=== PATIENT | female | born 1990 | race Caucasian/White ===

== ENCOUNTER 2022-06-12 06:30 | Inpatient (IN) ==
[2022-06-12] MEDS ORDERED: NS 100 ML IV 100 ML ONE (07:33)
[2022-06-12] MEDS ORDERED: ANCEF VIAL 1 GRAM ONE (07:33)
[2022-06-12] MEDS ORDERED: LR 1,000 ML IV 1,000 ML IV ONE ×2 (07:34→08:34)
[2022-06-12] MEDS ORDERED: D5 1/2 NS 1,000 ML 1,000 ML IV SCH (07:55)
[2022-06-12] MEDS ORDERED: ANCEF VIAL 1 GRAM IVP ONE (07:55)
[2022-06-12] MEDS ORDERED: TORADOL 30 MG VIAL ONE (08:36)
[2022-06-12] MEDS ORDERED: MARCAINE SPINAL ONE (08:36)
[2022-06-12] MEDS ORDERED: OFIRMEV IV 1000 MG VIAL 1,000 MG/100 ML VIAL IV ONE (08:37)
[2022-06-12] MEDS ORDERED: ZOFRAN INJ 4 MG VIAL ONE (08:37)
[2022-06-12] MEDS ORDERED: REGLAN INJ 10 MG VIAL ONE (08:37)
[2022-06-12] MEDS ORDERED: XYLOCAINE 2 % (PLAIN) ONE (08:37)
[2022-06-12] MEDS ORDERED: PEPCID 20 MG VIAL ONE (08:38)
[2022-06-12] MEDS ORDERED: PITOCIN ONE (08:46)
[2022-06-12] MEDS ORDERED: D5 1/2 NS 1,000 mL + PITOCIN 20 UNITS/L IV 20 UNITS/1,000 ML BAG IV ONE (09:38)
[2022-06-12] MEDS ORDERED: DILAUDID INJ ONE (09:41)
[2022-06-12] MEDS ORDERED: NEO-SYNEPHRINE INJ ONE (10:00)
[2022-06-12] MEDS ORDERED: EPHEDRINE SULFATE INJ ONE (10:03)
[2022-06-12] MEDS ORDERED: DECADRON INJ ONE (10:03)
[2022-06-12] MEDS ORDERED: VERSED ONE (10:30)
[2022-06-12] MEDS ORDERED: DIPRIVAN VIAL 20 ML ONE ×2 (10:33→11:01)
[2022-06-12] MEDS ORDERED: BENADRYL INJ 50 MG VIAL ONE (10:43)
[2022-06-12] MEDS ORDERED: KETAMINE 50 MG/5 ML-NACL SYRNG ONE (10:45)
[2022-06-12] MEDS ORDERED: ZOFRAN INJ 4 MG VIAL IVP PRN ×2 (11:24→11:53)
[2022-06-12] MEDS ORDERED: DILAUDID INJ IVP PRN (11:24)
[2022-06-12] MEDS ORDERED: BARHEMSYS INJ IVP PRN (11:24)
[2022-06-12] MEDS ORDERED: REGLAN INJ 10 MG VIAL IVP PRN (11:53)
[2022-06-12] MEDS ORDERED: ADACEL or BOOSTRIX TDaP VACCINE IM ONE (11:53)
[2022-06-12] MEDS ORDERED: PERCOCET TAB 5/325 MG PO PRN (11:53)
[2022-06-12] MEDS ORDERED: TORADOL 30 MG VIAL IVP PRN (11:53)
[2022-06-12] MEDS ORDERED: NARCAN INJ IVP PRN (11:53)
[2022-06-12] MEDS ORDERED: BENADRYL INJ 50 MG VIAL IVP PRN (11:53)
[2022-06-12] MEDS ORDERED: D5 1/2 NS 1,000 ML 1,000 ML with PITOCIN 20 UNITS IV SCH ×2 (12:00)
[2022-06-13] MEDS: MYLICON TAB 80 MG CHEW PO PRN ×2 (00:31→08:19)
[2022-06-13 05:11] LABS: HEMATOCRIT 21.8 % (36.0-47.0); HEMOGLOBIN 7.3 g/dL (12.0-16.0)
[2022-06-13] MEDS: PERCOCET TAB 5/325 MG PO PRN ×4 (07:51→20:45)
[2022-06-13] MEDS: COLACE CAP 100 MG PO SCH ×2 (08:18→20:45)
[2022-06-13] MEDS: PRENATAL PLUS PO SCH (09:00)
[2022-06-13] MEDS: MOTRIN TAB 800 MG PO PRN ×2 (12:31→19:21)
[2022-06-13] MEDS: BACTROBAN TOPICAL OINT TOP SCH ×2 (14:00→21:59)
[2022-06-13] MEDS: FERROUS GLUCONATE PO SCH (17:06)
[2022-06-13] MEDS ORDERED: TORADOL 30 MG VIAL IM PRN (21:49)
[2022-06-14] MEDS: MYLICON TAB 80 MG CHEW PO PRN ×2 (01:19→08:33)
[2022-06-14] MEDS: BACTROBAN TOPICAL OINT TOP SCH (05:55)
[2022-06-14] MEDS: FERROUS GLUCONATE PO SCH (06:04)
[2022-06-14] MEDS: PERCOCET TAB 5/325 MG PO PRN (06:04)
[2022-06-14 08:05] VITALS: BP 115/54
[2022-06-14] MEDS: COLACE CAP 100 MG PO SCH (08:31)
[2022-06-14] MEDS: MOTRIN TAB 800 MG PO PRN (08:32)
[2022-06-14] MEDS: PRENATAL PLUS PO SCH (08:32)
== END 2022-06-14 11:35 | disposition home or self-care (01) | DRG 784 ==
LOC: LD 07:12 → MED/SURG 11:53
PROVIDERS: ADMIT Specialist; ATTEND Specialist